=== PATIENT | male | born 1950 | race Caucasian/White ===

== ENCOUNTER 2020-11-03 10:24 | Outpatient (CLI) | payer MEDICARE, SELFPAY ==
--- NOTE | 2020-11-03 10:45 | MR_ITS ---
WS: [id number] MRI LEFT SHOULDER NONCONTRAST TECHNIQUE: Sagittal T2, coronal T1, T2 and proton density imaging. Axial gradient PDE imaging. CLINICAL INFORMATION: WORSENING LEFT SHOULDER PAIN COMPARISON: None. FINDINGS: Advanced degenerative changes at the AC joint with edema and synovial thickening. Hypertrophic change s. Findings compatible with arthritis and synovitis. Mild downsloping of the acromion. Mild undersurf abdoul acromial spurring. Prior postoperative changes rotator cuff anchors. Hardware degrades images in the distal rotator cuff. Postoperative changes involving the distal supraspinatus tendon. Supraspinat us appears intact. Partial intrasubstance tear involving the distal supraspinatus approximately 2.3 c m from the insertion. No tendon retraction. Tendinopathy involving the distal supraspinatus. Normal infraspinatus. Normal teres minor and subscapularis. Mild chronic thinning of the distal subsc apularis. Proximal biceps tendon is absent and presumably chronically torn. Proximal bicipital groove is empty. Biceps tendon in the distal upper arm is visualized. Degenerative fraying of the glenoid labrum which appears grossly intact. Moderate degenerative arthri tis glenohumeral articulation. Small amount of fluid in the subcoracoid bursa. MR/MR shoulder LT wo con* [id number] IMPRESSION: 1. Prior postoperative changes rotator cuff repair. Hardware degrades images. 2. Focal cleft in the distal supraspinatus approximately 2.3 cm from the inser tion likely represents focal intrasubstance tear. Tendinopathy involving the di stal supraspinatus. Some this may be postoperative. 3. Mild chronic thinning of the distal subscapularis. Rotator cuff is otherwis e intact. 4. Proximal biceps tendon is not visualized in the bicipital groove likely chr onically torn. 5. Chronic appearing degenerative fraying of the glenoid labrum. 6. Moderate to advanced synovitis and hypertrophic changes involving the AC yue int with edema. Mild downsloping of the acromion.
== END 2020-11-03 10:25 | disposition home or self-care (01) ==
LOC: RADWPI 10:32
PROVIDERS: PCP Family Medicine; Visit Provider Family Medicine
DX: M25.512 Pain in left shoulder (principal); M65.812 Other synovitis and tenosynovitis, left shoulder; R60.0 Localized edema
CPT/HCPCS: 73221

== ENCOUNTER → 2020-11-22 08:08 | Outpatient (BNVA) | payer MEDICARE, SELFPAY | PROVIDERS: PCP Family Medicine; Referring Provider Family Medicine; Visit Provider Specialist | DX: M25.512 Pain in left shoulder (principal); M19.012 Primary osteoarthritis, left shoulder | CPT/HCPCS: 73030 ==

== ENCOUNTER 2024-08-20 07:11 | Outpatient (CLI) | payer OTHER, SELFPAY ==
[2024-08-20 07:33] VITALS: BMI 31.0
--- NOTE | 2024-08-20 07:34 | NMCV_ITS ---
NM kareem perf SPECT r/s* [id number] Kirk Guerra Age: 74 Gender: M : 1950 Exam Date: 08/20/2024 08:17 Ordering Phys: Martina Palma Technologist: PATY Nicole Exam Location: [facility] Indications: CP STRESS TEST Please see separate stress test report in [facility] for full findings IMAGE PROTOCOL Rest/Stress 1 Lexiscan Day Radiopharmaceutical Dose (mCi) Administration Site Administered by Rest: Tc-99m 10.9 IV Xin Rivera GIS ANALYST DEVELOPER Stress:Tc-99m 32.7 IV Xin Rivera GIS ANALYST DEVELOPER Rest: 08/20/2024 60 Discovery 630 Stress: 08/20/2024 30 Discovery 630 0.4mg Lexiscan. Images obtained in supine and prone position. SPECT RESULTS Technical Quality: Good Raw Data Analysis: Normal Image Corrections: No attenuation or motion correction applied Summed Stress Score: 2 Summed Rest Score: 1 Summed Difference Score: 2 PERFUSION FINDINGS Small area of moderate reversibility noted in the distal lateral wall in the absence of wall motion abnormality could be artifact FUNCTIONAL RESULTS (calculated via Gated SPECT) Stress Image LV EF (%): 55 Stress EDV (mL):121 TID: 0.99 Stress ESV (mL):54 FUNCTIONAL FINDINGS: There is normal left ventricular systolic function. IMPRESSIONS Small area of moderate reversibility noted in the distal lateral wall in the absence of wall motion abnormality could be an artifact. Left ventricular ejection fraction appeared to be normal. Siva Liu MD (Electronically Signed) Final Date: 20 August 2024 11:00 S
--- NOTE | 2024-08-20 07:34 | ECG_ITS ---
[facility] Test Date: 2024-08-20 Pat Name: Kirk Guerra Department: Room: Gender: Male [employer]: : 1950 Requested By: Martina Chavez Order Number: [id number] Ashlee MD: Brian Dockery M.D. Interpretive Statements LEXISCAN SESTAMIBI STRESS TEST Procedure: At the baseline, the blood pressure was 146/71 mmHg with a heart rate of 52 bpm. The electrocardiogram showed Sinus bradycardia, normal axis with normal ST and T's. The Lexiscan was infused over a period of 20 seconds. A total of 0.4 mg of Lexiscan was infused. The stress phase was continued for a total of 5 minutes. Heart rate was at the end of stress phase was 60bpm and a blood pressure of 127/74 mmHg. The EKG at the peak infusion revealed normal sinus rhythm with no significant ST-T wave changes. Sestamibi was injected 20 seconds after the Lexiscan infusion. Blood pressure at the end of recovery phase was 119/67 mmHg with a heart rate of 60 bpm. Conclusion: 1. Normal EKG response to Lexiscan infusion 2. No Lexiscan induced chest pain or cardiac arrhythmia. 3. Normal blood pressure and heart rate response. 4. Sestamibi/sestamibi perfusion scan pending; see separate report. Electronically Signed On 08-22-2024 20:00:53 CDT by Brian Dockery M.D. [email or web address]
[2024-08-20] MEDS: regadenoson 0.4 Mg/5 ml Syringe IVP (09:06)
[2024-08-20 09:27] VITALS: BP 116/71; PULSE 62
== END 2024-08-20 07:12 | disposition home or self-care (01) ==
PROVIDERS: PCP Family Medicine; Visit Provider Nurse Practitioner
DX: R07.9 Chest pain, unspecified (principal); R94.39 Abnormal result of other cardiovascular function study
CPT/HCPCS: 36415; 78452; 93017; 96374; A9500; J2785

== ENCOUNTER → 2024-09-10 10:51 | Outpatient (BNVA) | payer OTHER, SELFPAY | PROVIDERS: PCP Family Medicine; Visit Provider Internal Medicine Cardiovascular Disease | DX: R94.39 Abnormal result of other cardiovascular function study (principal); I10 Essential (primary) hypertension; E11.9 Type 2 diabetes mellitus without complications; E78.5 Hyperlipidemia, unspecified; Z87.891 Personal history of nicotine dependence | CPT/HCPCS: 99204 ==

== ENCOUNTER 2024-10-03 09:00 | Outpatient (CLI) | payer OTHER, SELFPAY ==
--- NOTE | 2024-10-03 09:15 | USCV_ITS ---
Kirk Guerra Age: 74 Gender: M : 1950 Exam Date: 10/03/2024 09:20 Ordering Phys: Jas Carter MD ([email or web address]) Technologist: CT Exam Location: [facility] – [place] Indication: cp BP: 122 / 82 HR: 60 Rhythm: Sinus Technical Quality: Adequate MEASUREMENTS (Male / Female) Normal Values 2D ECHO LVOT Diameter 2.3 cm LV Ejection Fraction MOD 4C 72.1 % LV Ejection Fraction MOD 2C 76.1 % LV Ejection Fraction 2C AL 77.4 % LA Diameter 4.7 cm RA Systolic Volume 4C AL 40.2 ml RA Systolic Volume 4C MOD 41.4 ml LA Sys Volume AL 61.4 cm cubed LA Sys Volume Index AL 28.5 cm cubed/m squared Aorta at Sinotubular Diameter 2.5 cm M-MODE LA Ao Ratio MM 1.5 AV Cusp Separation MM 2.5 cm DOPPLER AV Peak Velocity 124.0 cm/s LVOT Peak Velocity 112.0 cm/s AV Area Cont Eq vti 4.4 cm squared AV Area Cont Eq pk 3.8 cm squared MV Peak Velocity 95.0 cm/s MV Area PHT 2.8 cm squared Mitral E to A Ratio 0.9 TV Peak Velocity 250.0 cm/s TR Peak Velocity 278.0 cm/s TR Peak Gradient 30.9 mmHg TR Mean Velocity 205.0 cm/s TR Mean Gradient 18.9 mmHg TR Velocity Time Integral 82.1 cm TV Peak E Velocity 89.0 cm/s Right Atrial Pressure 3.0 mmHg Pulmonary Artery Systolic Pressu 33.9 mmHg PV Peak Velocity 92.5 cm/s FINDINGS Left Ventricle Normal left ventricular size and systolic function, EF 75% no regional wall motion abnormalities. Grade I/IV diastolic dysfunction (abnormal relaxation filling pattern), normal to mildly elevated filling pressures. Right Ventricle The right ventricle is normal in size and function. Right Atrium The right atrium is normal in size. Left Atrium Mildly increased left atrial size. Mitral Valve No gross abnormalities noted Aortic Valve Trace to mild aortic valve regurgitation. Tricuspid Valve Mild tricuspid valve regurgitation. Estimated pulmonary artery peak systolic pressure 34 mmHg Pulmonic Valve No gross abnormalities noted Pericardium Normal pericardium without effusion. Aorta Normal ascending aorta dimension. IVC The inferior vena cava appears normal. CONCLUSIONS Normal left ventricular size and systolic function, EF 75% no regional wall motion abnormalities. Grade I/IV diastolic dysfunction (abnormal relaxation filling pattern), normal to mildly elevated filling pressures. Mildly increased left atrial size. Trace to mild aortic valve regurgitation. Mild tricuspid valve regurgitation. Estimated pulmonary artery peak systolic pressure 34 mmHg. There is no pericardial effusion. There are no intracardiac masses. No similar previous studies are available for comparison Dr Jas Carter MD FACC (Electronically Signed) Final Date: 09 October 2024 10:58 S
== END 2024-10-03 09:01 | disposition home or self-care (01) ==
LOC: RAD 09:01
PROVIDERS: PCP Family Medicine; Visit Provider Internal Medicine Cardiovascular Disease
DX: I50.30 Unspecified diastolic (congestive) heart failure (principal); R06.09 Other forms of dyspnea
CPT/HCPCS: 93306

== ENCOUNTER → 2025-02-04 09:43 | Outpatient (BNVA) | payer OTHER, SELFPAY | PROVIDERS: PCP Family Medicine; Visit Provider Nurse Practitioner Family | DX: R94.39 Abnormal result of other cardiovascular function study (principal); I10 Essential (primary) hypertension; E11.9 Type 2 diabetes mellitus without complications; E78.5 Hyperlipidemia, unspecified | CPT/HCPCS: 99213 ==

== ENCOUNTER → 2025-08-06 13:25 | Outpatient (BNVA) | payer OTHER, SELFPAY | PROVIDERS: PCP Family Medicine; Visit Provider Internal Medicine Cardiovascular Disease | DX: R07.9 Chest pain, unspecified (principal); I07.1 Rheumatic tricuspid insufficiency | CPT/HCPCS: 99214 ==

== ENCOUNTER → 2025-08-25 09:27 | Outpatient (BNVA) | payer OTHER, SELFPAY | PROVIDERS: PCP Family Medicine; Visit Provider Nurse Practitioner Family | DX: L57.8 Other skin changes due to chronic exposure to nonionizing radiation (principal); L81.4 Other melanin hyperpigmentation; D22.61 Melanocytic nevi of right upper limb, including shoulder; Z80.8 Family history of malignant neoplasm of other organs or systems; L82.0 Inflamed seborrheic keratosis; L53.8 Other specified erythematous conditions; Z78.9 Other specified health status; L29.89 Other pruritus; R20.8 Other disturbances of skin sensation; D48.5 Neoplasm of uncertain behavior of skin; L57.0 Actinic keratosis | CPT/HCPCS: 11102; 17000; 17110; 99203 ==